=== PATIENT | female | born 1985 | race African-American/Black ===

== ENCOUNTER 2017-05-05 19:01 | Emergency (ER) | payer SELFPAY ==
[2017-05-05] MEDS ORDERED: methylPREDNISolone Sod Succ/PF 125 MG/2 ML VIAL ONE (20:04)
== END 2017-05-05 20:36 | disposition home or self-care (01) ==
LOC: ERS 19:01
DX: J20.9 Acute bronchitis, unspecified (principal); I10 Essential (primary) hypertension
CPT/HCPCS: 96372; J2930

== ENCOUNTER 2019-02-04 20:42 | Emergency (ER) | payer OTHER ==
--- NOTE | 2019-02-04 21:33 | RAD ---
RIGHT WRIST: 02/04/19 Three views. HISTORY: Injury. Obliquely oriented fracture involving the proximal to mid shaft of the third metacarpal with mild dis placement. Carpals appear intact. IMPRESSION: Fracture third metacarpal. POS: DIANA
--- NOTE | 2019-02-04 21:41 | RAD ---
EXAM: RIGHT HAND THREE VIEWS: 02/04/19 HISTORY: Pain. FINDINGS: Minimally displaced somewhat spiral type fracture involving the third metacarpal. Dorsal soft tissue swelling. Mild volar angulation. IMPRESSION: Minimally displaced spiral fracture third metacarpal with slight foreshortening and minimal volar ang ulation and dorsal soft tissue swelling. POS: RRE
== END 2019-02-04 21:29 | disposition home or self-care (01) ==
LOC: ERS 20:42
DX: S62.322A Displaced fracture of shaft of third metacarpal bone, right hand, initial encounter for closed fracture (principal); I10 Essential (primary) hypertension; W10.9XXA Fall (on) (from) unspecified stairs and steps, initial encounter
CPT/HCPCS: 26600

== ENCOUNTER 2019-10-25 18:37 | Emergency (ER) | payer OTHER | END 2019-10-25 19:17 | disposition home or self-care (01) | LOC: ERS 18:37 | DX: B34.9 Viral infection, unspecified (principal); I10 Essential (primary) hypertension | CPT/HCPCS: 99283 ==

== ENCOUNTER 2024-06-08 00:46 | Emergency (ER) | payer OTHER, SELFPAY ==
[2024-06-08] MEDS ORDERED: CEFAZOLIN 2 GM VIAL ONE (00:53)
[2024-06-08] MEDS ORDERED: Sodium Chloride 0.9% 100 ML ONE (00:53)
[2024-06-08 01:11] LABS: Hematocrit 31.7 % (36.0-47.0); Mean Corpuscular HGB CONC 31.5 g/dL (32.0-36.0); Mean Corpuscular Hemoglobin 21.1 pg (27.0-31.0); Mean Corpuscular Volume 66.9 fL (78.0-98.0); Mean Platelet Volume 11.7 fL (7.4-10.4); Platelet Count 298 10x3/uL (130-400); RBC Distribution Width 16.9 % (11.5-14.5); Red Blood Cell (RBC) Count 4.74 mill/uL (4.20-5.40)
[2024-06-08 01:21] LABS: Alcohol Less than 10.0 mg/dL (Less than 10)
[2024-06-08] MEDS ORDERED: Ondansetron PF 4 MG/2 ML Vial ONE (01:21)
[2024-06-08] MEDS ORDERED: Morphine 4 MG/ML VIAL ONE (01:21)
[2024-06-08 01:24] LABS: ALT (SGPT) 9 U/L (8-55); AST (SGOT) 9 U/L (5-34); Albumin 3.5 g/dL (3.5-5.0); Alkaline Phosphatase 67 U/L (40-110); Anion Gap 15 mmol/L (10-20); BUN (Urea Nitrogen) 14 mg/dL (7.0-18.7); Bilirubin, Total 0.2 mg/dL (0.2-1.2); Calc. Creatinine Clearance 0 mL/min (70-130); Calcium 8.9 mg/dL (7.8-10.44); Carbon Dioxide 20 mmol/L (22-29); Chloride 109 mmol/L (98-107); Estimated GFR 89; Glucose 106 mg/dL (70-105); Lipase 27 U/L (8-78); Potassium 3.6 mmol/L (3.5-5.1); Protein, Total 7.5 g/dL (6.0-8.3); Prothrombin Time 13.6 sec (12.0-14.7); Sodium 140 mmol/L (136-145)
[2024-06-08 01:25] LABS: PTT 28.6 sec (22.9-36.1)
[2024-06-08 01:29] LABS: Troponin I 0.018 ng/mL (< 0.028)
[2024-06-08 01:31] LABS: Eosinophils 3 % (0-10); Hypochromia SLIGHT = 6-15 cells HPF (0-5); Lymphocytes 36 % (21-51); Microcytosis SLIGHT = 6-15 cells HPF (0-5); Monocytes 10 % (0-10); Neutrophil 49 % (42-75); Platelet Adequacy Comment Platelets Normal; Polychromasia SLIGHT = 2-3 cells HPF (0-2); Reactive Lymphocytes 2 % (0-10)
[2024-06-08] MEDS ORDERED: Labetalol HCl 100 MG/20 ML VIAL ONE (02:21)
[2024-06-08 03:52] LABS: Bacteria/HPF None Seen HPF (None Seen); Bilirubin Negative (Negative); Blood, Urine Negative (Negative); CAUTI Indications for Culture Pelvic or flank pain; Clarity Clear (Clear); Glucose, Urine (Dipstick) Normal (Negative); Ketone, Urine Negative (Negative); Leukocyte Negative Leu/uL (Negative); Nitrite Negative (Negative); Protein, Urine (Dipstick) Negative (Neg-Trace); RBC/HPF None Seen HPF (0-3); Specific Gravity, Urine 1.007 (1.002-1.036); Squamous Epithelial None Seen HPF (0-3); Urobilinogen Normal mg/dL (Less than 2); WBC/HPF 0-3 HPF (0-3); pH, Urine 6.5 (5.0-9.0)
[2024-06-08 03:58] LABS: Urine Culture Reflex No No
[2024-06-08 04:09] LABS: Amphetamine Not Detected (NotDetected); Barbiturates Screen Not Detected (NotDetected); Benzodiazepine Screen Not Detected (NotDetected); Cocaine Metabolite Screen Not Detected (NotDetected); Methadone Not Detected (NotDetected); Methamphetamine Not Detected (NotDetected); Opiate Screen Detected (NotDetected); Oxycodone Screen Not Detected (NotDetected); Phencyclidine (PCP) Not Detected (NotDetected); THC/Cannabinoid Screen Detected (NotDetected); Tricyclic Screen Not Detected (NotDetected)
== END 2024-06-08 03:26 | disposition home or self-care (01) ==
LOC: ERS 00:46
DX: S21.131A Puncture wound without foreign body of right front wall of thorax without penetration into thoracic cavity, initial encounter (principal); I10 Essential (primary) hypertension; X58.XXXA Exposure to other specified factors, initial encounter
CPT/HCPCS: 71046; 71250; 80053; 80306; 80307; 81001; 83690; 84484; 85025; 85610; 85730; 86850; 86900; 86901; 93005; 94760; 96365; 96375; G0390; J2272; J2405